=== PATIENT | female | born 1940 | race Hispanic/Latino ===

== ENCOUNTER 2017-07-01 11:09 | Emergency (ER) | payer MEDICARE ==
[2017-07-01 11:09] VITALS: BMI 31.1
[2017-07-01 11:28] VITALS: TEMP 98.6
[2017-07-01 12:12] VITALS: RESP 18; O2SAT 98
--- NOTE | 2017-07-01 12:31 | ED PDOC ---
Arrival/HPI - General Chief Complaint: ENT Problem Time Seen by Provider: 07/01/17 11:42 Historian: Patient - History of Present Illness Narrative History of Present Illness (Text): 07/01/17 12:10 Jasmyne Casanova is a 77 year old female, whose past medical history includes hypertension, atrial fibrillation, and hyperlipidemia, presents to the Emergency department complaining of epistaxis from the right nostril. Patient reports that the bleeding began two days ago during the night time, it then stopped, and continued the following morning (yesterday). She has not had any bleeding since then. Patient notes she is currently on Eliquis, compliant with her medication, but has felt very fatigued yesterday. Patient denies chest pain , shortness of breath, headache, fever, chills, cough, vomiting, diarrhea, abdominal pain, dizziness, lightheadedness or other complaints. She did recently finish an antibiotic course for her teeth, and says her stomach did not feel well while she was on it, but currently no GI symptoms. PMD: Dr. Espinoza Acidizer Water Well: Dr. Hernandez Time/Duration: < week (2 days ago ) Symptom Onset: Sudden Symptom Course: Intermittent Activities at Onset: Rest Modifying Factors (Text): None Context: Home Associated Symptoms (Text): fatigue Past Medical History - Provider Review Nursing Documentation Reviewed: Yes - Infectious Disease Hx of Infectious Diseases: None - Tetanus Immunization Tetanus Immunization: Unknown - Reproductive Menopause: Yes - Cardiac Hx Atrial Fibrillation: Yes Hx Hypertension: Yes - Neurological HX Cerebrovascular Accident: Yes Hx Transient Ischemic Attacks (TIA): Yes (double vision resolved 08/2012) - HEENT Hx HEENT Disorder: Yes (wears glasses) - Musculoskeletal/Rheumatological Hx Falls: No - Gastrointestinal Hx Gastroesophageal Reflux: Yes - Psychiatric Hx Depression: Yes Hx Emotional Abuse: No Hx Physical Abuse: No Hx Substance Use: No - Surgical History Hx Orthopedic Surgery: Yes (knee replacement right knee) - Anesthesia Hx Anesthesia: No - Suicidal Assessment Feels Threatened In Home Enviroment: No Family/Social History - Physician Review Nursing Documentation Reviewed: Yes Family/Social History: Unknown Family HX Smoking Status: Never Smoked Hx Alcohol Use: Yes Frequency of alcohol use: Socially Hx Substance Use: No Allergies/Home Meds Allergies/Adverse Reactions: Allergies Penicillins Allergy (Verified 07/01/17 11:28) RASH Home Medications: Home Meds Medication Instructions Recorded Confirmed Calcium Carbonate [Calcium] 1 tab PO DAILY 06/22/14 07/01/17 Losartan [Cozaar] 50 mg PO DAILY 06/22/14 07/01/17 Omeprazole [Prilosec] 20 mg PO DAILY 06/22/14 07/01/17 Simvastatin 40 mg PO DAILY 06/22/14 07/01/17 Apixaban [Eliquis] 5 mg PO BID 07/01/17 07/01/17 Cholecalciferol [Vitamin D] 5,000 iu PO DAILY 07/01/17 07/01/17 buPROPion [Bupropion HCl] 300 mg PO DAILY 07/01/17 07/01/17 Review of Systems - Physician Review All systems were reviewed & negative as marked: Yes - Review of Systems Constitutional: Fatigue. absent: Fevers ENT: Epistaxis (right nostril ) Respiratory: absent: SOB Cardiovascular: absent: Chest Pain Neurological: absent: Headache, Dizziness Physical Exam Vital Signs Temp Pulse Resp BP Pulse Ox 07/01/17 12:12 66 18 121/79 98 07/01/17 11:23 98.6 F 68 16 122/81 97 Temperature: Afebrile Blood Pressure: Normal Pulse: Regular Respiratory Rate: Normal Appearance: Positive for: Well-Appearing, Non-Toxic, Comfortable Pain Distress: None Mental Status: Positive for: Alert and Oriented X 3 - Systems Exam Head: Present: Atraumatic, Normocephalic Pupils: Present: PERRL Extroacular Muscles: Present: EOMI Conjunctiva: Present: Normal Mouth: Present: Moist Mucous Membranes Pharnyx: Present: Normal. No: ERYTHEMA, EXUDATE Nose (External): Present: Atraumatic Nose (Internal): Present: Normal Inspection, Moist. No: No Active Bleeding, Engorged, Edematous, Boggy, Clear Mucous, Septal Deviation, Septal Hematoma, Epistaxis Neck: Present: Normal Range of Motion Respiratory/Chest: Present: Clear to Auscultation, Good Air Exchange. No: Respiratory Distress, Accessory Muscle Use Cardiovascular: Present: Regular Rate and Rhythm, Normal S1, S2. No: Murmurs Abdomen: Present: Normal Bowel Sounds. No: Tenderness, Distention, Peritoneal Signs Back: Present: Normal Inspection Upper Extremity: Present: Normal Inspection. No: Cyanosis, Edema Lower Extremity: Present: Normal Inspection. No: Edema Neurological: Present: GCS=15, CN II-XII Intact, Speech Normal Skin: Present: Warm, Dry, Normal Color. No: Rashes Psychiatric: Present: Alert, Oriented x 3, Normal Insight, Normal Concentration Medical Decision Making ED Course and Treatment: 07/01/17 12:10 Impression: 77 year old female with epistaxis, on eliquis for afib. Exam is normal with unremarkable vitals. Plan: -- EKG -- Urinalysis -- Labs -- Reassess and disposition Progress Notes: EKG: Ordered, reviewed, and independently interpreted the EKG. Rate : 68 BPM Rhythm : NSR Interpretation : No ST/T-wave inversions changes. Normal intervals. Borderline left axis deviation 07/01/17 12:50 Labs show her to have mild dehydration (BUN/Cr is >20). She was given IVF. Urine also shows possible UTi. Spoke with Dr. Hernandez regarding Eliquis management; he recommended stopping the Eliquis for just one dose. Otherwise, if epistaxis continues he advises the patient to follow up with ENT. Patient is otherwise ok for d/c. - Lab Interpretations Lab Results: 07/01/17 12:24 07/01/17 12:24 Lab Results 07/01/17 13:20: Urine Color Light yellow, Urine Appearance Sl cloudy, Urine pH 6.0, Ur Specific [place] 1.010, Urine Protein Negative, Urine Glucose (UA) Negative, Urine Ketones Negative, Urine Blood Negative, Urine Nitrate Negative, Urine Bilirubin Negative, Urine Urobilinogen 0.2, Ur Leukocyte Esterase Moderate H, Urine RBC Negative, Urine WBC 2 - 5, Ur Epithelial Cells 4 - 5, Urine Bacteria Few 07/01/17 12:24: Sodium 137, Potassium 4.7, Chloride 102, Carbon Dioxide 26, Anion Gap 14, BUN 24 H, Creatinine 1.0, Est GFR ( Amer) > 60, Est GFR ( Non-Af Amer) 54, Random Glucose 99, Calcium 9.7, Magnesium 1.6 L, Total Bilirubin 0.5, AST 38, ALT 46, Alkaline Phosphatase 69, Lactate Dehydrogenase 491, Total Creatine Kinase 44, Troponin I < 0.01, Total Protein 7.3, Albumin 4.1 , Globulin 3.2, Albumin/Globulin Ratio 1.3, Lipase 91 07/01/17 12:24: PT 13.2 H, INR 1.22 H, APTT 33.7 H 07/01/17 12:24: WBC 5.6 D, RBC 4.43, Hgb 13.9, Hct 42.4, MCV 95.7, MCH 31.4, MCHC 32.8, RDW 13.3, Plt Count 188, MPV 10.3, Gran % 60.9, Lymph % (Auto) 26.4, Gulf % (Auto) 9.8 H, Eos % (Auto) 2.5, Baso % (Auto) 0.4, Gran # 3.41, Lymph # 1.5, Gulf # 0.6, Eos # 0.1, Baso # 0.02 - EKG Interpretation Interpreted by ED Physician: Yes Type: 12 lead EKG - Medication Orders Current Medication Orders: Discontinued Medications Sodium Chloride (Sodium Chloride 0.9%) 500 mls @ 999 mls/hr IV .Q31M STA Stop: 07/01/17 13:09 Last Admin: 07/01/17 12:47 Dose: 999 mls/hr - Scribe Statement The provider has reviewed the documentation as recorded by the Scribe 07/01/2017 Disposition/Present on Arrival - Present on Arrival Any Indicators Present on Arrival: No History of DVT/PE: No History of Uncontrolled Diabetes: No Urinary Catheter: No History of Decub. Ulcer: No History Surgical Site Infection Following: None - Disposition Have Diagnosis and Disposition been Completed?: Yes Diagnosis: Epistaxis, Urinary tract infection Disposition: HOME/ ROUTINE Disposition Time: 13:55 Patient Plan: Discharge Condition: GOOD Discharge Instructions (ExitCare): Nosebleed (ED) Additional Instructions: Hold the eliquis dose for tonight and restart tomorrow morning. Of bleeding recurs, make sure to follow up with ENT. Otherwise, drink plenty of fluids and take the antibiotics as prescribed. Return to the emergency department if any new concerning symptoms. Prescriptions: Nitrofurantoin Macrocrystals [Macrobid] 100 mg PO BID #10 cap Referrals: Mickey Espinoza MD [Primary Care Provider] - Follow up with primary Blayne Holm DO [Staff Provider] - Follow up with primary Forms: [facility] ([place])
[2017-07-01 12:32] LABS: BASO # 0.02 K/mm3 (0.0-2.0); BASO % 0.4 % (0.0-3.0); EOS # 0.1 (0.0-0.7); EOS % 2.5 % (1.5-5.0); GRAN # 3.41 (1.4-6.5); GRAN % 60.9 % (50.0-68.0); HEMOGLOBIN 13.9 gm/dL (12.0-16.0); LYMPH # 1.5 (1.2-3.4); LYMPH % 26.4 % (22.0-35.0); MEAN CELL VOLUME 95.7 fL (80.0-105.0); MEAN CORPUSCULAR HEMOGLOBIN 31.4 pg (25.0-35.0); MEAN CORPUSCULAR HGB CONC 32.8 g/dl (31.0-37.0); MEAN PLATELET VOLUME 10.3 fl (7.0-11.0); MONO # 0.6 (0.1-0.6); MONO % 9.8 % (1.0-6.0); PLATELET COUNT 188 10^3/uL (120.0-450.0); RBC 4.43 10^6/uL (3.5-6.1); RED CELL DISTRIBUTION WIDTH 13.3 % (11.5-14.5); WHITE BLOOD COUNT 5.6 10^3/ul (4.5-11.0)
[2017-07-01 12:36] LABS: ALB/GLOB RATIO 1.3 (1.1-1.8); ALBUMIN 4.1 g/dL (3.0-4.8); ALT/SGPT 46 U/L (7-56); AST/SGOT 38 U/L (15-39); BLOOD UREA NITROGEN 24 mg/dL (7-21); CALCIUM 9.7 mg/dL (8.4-10.5); GFR AFRICAN-AMERICAN > 60; GFR NON-AFRICAN AMERICAN 54; LIPASE 91 U/L (23-300); MAGNESIUM 1.6 mg/dL (1.7-2.2)
[2017-07-01 12:38] LABS: INR 1.22 (0.93-1.08); PARTIAL THROMBOPLASTIN TIME 33.7 Seconds (23.7-30.8); PROTHROMBIN TIME 13.2 Seconds (9.9-11.8)
[2017-07-01] MEDS ORDERED: Sodium Chloride 0.9% 500 ML IV STA (12:39)
[2017-07-01 12:47] LABS: TROPONIN I < 0.01 ng/mL
[2017-07-01 13:39] LABS: URINE BILIRUBIN NEGATIVE (NEGATIVE); URINE BLOOD NEGATIVE (NEGATIVE); URINE GLUCOSE (UA) NEGATIVE (NEGATIVE); URINE LEUKOCYTE ESTERASE MODERATE Leu/uL (NEGATIVE); URINE NITRATE NEGATIVE (NEGATIVE); URINE PROTEIN NEGATIVE mg/dL (<30 mg/dL); URINE UROBILINOGEN 0.2 E.U./dL (<1 E.U./dL)
[2017-07-01 13:46] LABS: URINE APPEARANCE SL CLOUDY (CLEAR); URINE COLOR LIGHT YELLOW (YELLOW); URINE RBC NEGATIVE /hpf (0-2)
[2017-07-01 13:47] LABS: URINE BACTERIA FEW (NEG)
[2017-07-01] MEDS ORDERED: Magnesium Oxide 400 mg Tab UD PO STA (13:59)
[2017-07-01 14:07] VITALS: BP 118/75; PULSE 64
--- NOTE | 2017-07-01 15:27 | CARD ---
APPROVED REPORT EKG Measurement Heart [id number] <Conclusion> Normal sinus rhythm PRWP Leftward axis
== END 2017-07-01 14:35 | disposition home or self-care (01) ==
LOC: ED 11:09
DX: R04.0 Epistaxis (principal); N39.0 Urinary tract infection, site not specified; I10 Essential (primary) hypertension; I48.91 Unspecified atrial fibrillation; E78.5 Hyperlipidemia, unspecified; Z79.01 Long term (current) use of anticoagulants
CPT/HCPCS: 80053; 81001; 82550; 83615; 83690; 83735; 84484; 85025; 85610; 85730; 87086; 93005; 99283; J7040